=== PATIENT | male | born 1960 | race Caucasian/White ===

== ENCOUNTER 2017-12-05 16:13 | Emergency (ER) | payer OTHER ==
[2017-12-05 17:15] LABS: ABSOLUTE BASOPHILS # (AUTO) 0.1 10^3/uL (0.0-0.2); ABSOLUTE EOSINOPHILS # (AUTO) 0.2 10^3/uL (0.0-0.6); ABSOLUTE MONOCYTES (AUTO) 0.6 10^3/uL (0.1-1.4); ABSOLUTE NEUT (AUTO) 5.4 10^3/uL (1.7-8.2); EOSINOPHILS % (AUTO) 2.6 % (0-6); HEMATOCRIT 46.2 % (37.9-51.0); HEMOGLOBIN 16.5 g/dL (13.5-17.0); LYMPHOCYTES % (AUTO) 23.7 % (13-45); MEAN CORPUSCULAR HEMOGLOBIN 29.8 pg (27.0-33.4); MEAN CORPUSCULAR HGB CONC 35.7 g/dL (32.0-36.0); MEAN CORPUSCULAR VOLUME 84 fl (80-97); MONOCYTES % (AUTO) 7.6 % (3-13); PLATELET COUNT 188 10^3/uL (150-450); RED BLOOD COUNT 5.53 10^6/uL (4.35-5.55); RED CELL DISTRIBUTION WIDTH 13.8 % (11.5-14.0); SEGMENTED NEUTROPHILS % (AUTO) 65.1 % (42-78); TOTAL CELLS COUNTED % (AUTO) 100 %; WHITE BLOOD COUNT 8.3 10^3/uL (4.0-10.5)
[2017-12-05 17:17] LABS: INTERNATIONAL RATION (INR) 0.96; PROTHROMBIN TIME 13.2 SEC (11.4-15.4)
--- NOTE | 2017-12-05 17:17 | RADIOLOGY REPORT (SQ) ---
EXAM DESCRIPTION: CHEST SINGLE VIEW COMPLETED DATE/TIME: 12/05/2017 4:55 pm REASON FOR STUDY: stroke s/s COMPARISON: None. EXAM PARAMETERS: NUMBER OF VIEWS: One view. TECHNIQUE: Single frontal radiographic view of the chest acquired. RADIATION DOSE: NA LIMITATIONS: None. FINDINGS: LUNGS AND PLEURA: No opacities, masses or pneumothorax. No pleural effusion. MEDIASTINUM AND HILAR STRUCTURES: No masses. Contour normal. HEART AND VASCULAR STRUCTURES: Heart normal in size. Normal vasculature. BONES: No acute findings. HARDWARE: None in the chest. OTHER: No other significant finding. IMPRESSION: NO ACUTE RADIOGRAPHIC FINDING IN THE CHEST. TECHNICAL DOCUMENTATION: JOB ID: [id number] [employer]- All Rights Reserved Reading location - IP/workstation name: [email or web address]
[2017-12-05 17:18] LABS: PARTIAL THROMBOPLASTIN TIME 29.5 SEC (23.5-35.8)
--- NOTE | 2017-12-05 17:18 | RADIOLOGY REPORT (SQ) ---
EXAM DESCRIPTION: CT HEAD WITHOUT COMPLETED DATE/TIME: 12/05/2017 4:50 pm REASON FOR STUDY: stroke s/s COMPARISON: None. TECHNIQUE: Axial images acquired through the brain without intravenous contrast. Images reviewed wi th bone, brain and subdural windows. Additional sagittal and coronal reconstructions were generated. Images stored on PACS. All CT scanners at this facility use dose modulation, iterative reconstruction, and/or weight based d osing when appropriate to reduce radiation dose to as low as reasonably achievable (ALARA). [facility]: Dose Right [facility]: CareDose [facility]: Dose Right [facility]: Teradose 4D [facility]: [employer] RADIATION DOSE: CT Rad equipment meets quality standard of care and radiation dose reduction techniq ues were employed. CTDIvol: 53.2 mGy. DLP: 1097 mGy-cm. mGy. LIMITATIONS: None. FINDINGS: VENTRICLES: Normal size and contour. CEREBRUM: No masses. No hemorrhage. No midline shift. There is a vague area of low density in the right basal ganglia/ internal capsule. No mass effect or hemorrhage. CEREBELLUM: No masses. No hemorrhage. No alteration of density. No evidence for acute infarction. EXTRAAXIAL SPACES: No fluid collections. No masses. ORBITS AND GLOBE: No intra- or extraconal masses. Normal contour of globe without masses. CALVARIUM: No fracture. PARANASAL SINUSES: Mild chronic sinus disease. SOFT TISSUES: No mass or hematoma. OTHER: No other significant finding. IMPRESSION: Possible developing infarct in the right white matter without mass effect. EVIDENCE OF ACUTE STROKE: NO. COMMENT: Quality ID # [id number]: Final reports with documentation of one or more dose reduction techniques (e.g., Automated exposure control, adjustment of the mA and/or kV according to patient size, use of iterative reconstruction technique) TECHNICAL DOCUMENTATION: JOB ID: [id number] [employer]- All Rights Reserved Reading location - IP/workstation name: [email or web address]
[2017-12-05 17:36] LABS: ALANINE AMINOTRANSFERASE 16 U/L (21-72); ALBUMIN 4.3 g/dL (3.5-5.0); ALKALINE PHOSPHATASE 32 U/L (38-126); ANION GAP 10 (5-19); ASPARTATE AMINO TRANSFERASE 16 U/L (17-59); BILIRUBIN,DIRECT 0.2 mg/dL (0.0-0.4); BILIRUBIN,TOTAL 0.8 mg/dL (0.2-1.3); BLOOD UREA NITROGEN 8 mg/dL (7-20); CALCIUM 9.2 mg/dL (8.4-10.2); CARBON DIOXIDE 28 mmol/L (22-30); CHLORIDE 103 mmol/L (98-107); CREATINE KINASE 45 U/L (55-170); GLUCOSE 90 mg/dL (75-110); POTASSIUM 3.7 mmol/L (3.6-5.0); TOTAL PROTEIN 7.4 g/dL (6.3-8.2)
[2017-12-05] MEDS ORDERED: ASPIRIN 81 MG TABLET, CHEWABLE PO ONE (17:38)
[2017-12-05 17:47] LABS: CREATINE KINASE MB 0.94 ng/mL (<4.55)
[2017-12-05 17:52] LABS: TROPONIN I < 0.012 ng/mL
--- NOTE | 2017-12-05 17:55 | ER Document Report ---
ED General - General Chief Complaint: S/S of Possible Stroke Stated Complaint: LEFT SIDE NUMBNESS Time Seen by Provider: 12/05/17 17:00 Mode of Arrival: Ambulatory Information source: Patient Notes: 57-year-old male with untreated hypertension, hyperlipidemia presents via private vehicle with concern for stroke-like symptoms that started 1 day prior to arrival. Patient states that yesterday he developed left sided facial, arm and leg numbness. He states that it progressively worsened to the point that he was dragging his leg to walk. Son who is at the bedside states that he performed a limited stroke exam and at that time patient had no facial droop, slurred speech or ataxia. Patient states that the numbness and weakness improved throughout the day but then he experienced some blurred vision. Patient states that symptoms subsided by the time he went to bed but when he awoke this morning he again felt left-sided facial numbness. Patient denies prior similar symptoms, headache, tobacco use.. TRAVEL OUTSIDE OF THE [place] IN LAST 30 DAYS: No - HPI Onset: Yesterday Onset/Duration: Gradual, Persistent, Worse Quality of pain: No pain Associated symptoms: Weakness. denies: Fever, Headache, Nausea, Vomiting Exacerbated by: Denies Relieved by: Denies Similar symptoms previously: No Recently seen / treated by doctor: No - Related Data Allergies/Adverse Reactions: No Known Allergies Allergy (Verified 12/05/17 16:14) Past Medical History - General Information source: Patient, Relative, [facility] Records - Social History Smoking Status: Never Smoker Frequency of alcohol use: None Drug Abuse: None Lives with: Family Family History: Reviewed & Not Pertinent Patient has suicidal ideation: No Patient has homicidal ideation: No - Past Medical History Cardiac Medical History: Reports: Hx Hypercholesterolemia, Hx Hypertension Renal/ Medical History: Denies: Hx Peritoneal Dialysis Review of Systems - Review of Systems Constitutional: Weakness. denies: Recent illness EENT: denies: Difficulty swallowing Cardiovascular: denies: Chest pain Respiratory: denies: Short of breath Gastrointestinal: denies: Abdominal pain, Nausea, Vomiting Genitourinary: denies: Flank pain Musculoskeletal: No symptoms reported. denies: Back pain Skin: denies: Rash Neurological/Psychological: Weakness, Gait changes, Loss of power, Numbness. denies: Confusion, Headaches -: Yes All other systems reviewed and negative Physical Exam - Vital signs Vitals: Temp Pulse Resp BP Pulse Ox 98.8 F 69 18 166/111 H 98 12/05/17 16:21 12/05/17 16:21 12/05/17 16:21 12/05/17 16:21 12/05/17 16:21 - Notes Notes: PHYSICAL EXAMINATION: GENERAL: Well-appearing, well-nourished and in no acute distress. HEAD: Atraumatic, normocephalic. EYES: Pupils equal round and reactive to light, extraocular movements intact, sclera anicteric, conjunctiva are normal. ENT: Nares patent, oropharynx clear without exudates. Moist mucous membranes. NECK: Normal range of motion, supple without lymphadenopathy LUNGS: Breath sounds clear to auscultation bilaterally and equal. No wheezes rales or rhonchi. HEART: Regular rate and rhythm without murmurs ABDOMEN: Soft, nontender, nondistended abdomen. No guarding, no rebound. No masses appreciated. Musculoskeletal: Normal range of motion, no pitting or edema. No cyanosis. NEUROLOGICAL: Cranial nerves grossly intact. Normal speech, abnormal gait gait. Altered sensation on the left side of his face. NIH-2 for left upper extremity ataxia, decreased sensation. PSYCH: Normal mood, normal affect. SKIN: Warm, Dry, normal turgor, no rashes or lesions noted. Course - Re-evaluation Re-evalutation: Laboratory 12/05/17 12/05/17 12/05/17 17:00 17:00 17:00 WBC 8.3 RBC 5.53 Hgb 16.5 Hct 46.2 MCV 84 MCH 29.8 MCHC 35.7 RDW 13.8 Plt Count 188 Seg Neutrophils % 65.1 Lymphocytes % 23.7 Monocytes % 7.6 Eosinophils % 2.6 Basophils % 1.0 Absolute Neutrophils 5.4 Absolute Lymphocytes 2.0 Absolute Monocytes 0.6 Absolute Eosinophils 0.2 Absolute Basophils 0.1 PT 13.2 INR 0.96 APTT 29.5 Sodium 141.0 Potassium 3.7 Chloride 103 Carbon Dioxide 28 Anion Gap 10 BUN 8 Creatinine 0.81 Est GFR ( Amer) > 60 Est GFR (Non-Af Amer) > 60 Glucose 90 POC Glucose Calcium 9.2 Total Bilirubin 0.8 Direct Bilirubin 0.2 Neonat Total Bilirubin Not Reportable Neonat Direct Bilirubin Not Reportable Neonat Indirect Bili Not Reportable AST 16 L ALT 16 L Alkaline Phosphatase 32 L Creatine Kinase 45 L CK-MB (CK-2) Troponin I Total Protein 7.4 Albumin 4.3 12/05/17 12/05/17 17:00 17:36 WBC RBC Hgb Hct MCV MCH MCHC RDW Plt Count Seg Neutrophils % Lymphocytes % Monocytes % Eosinophils % Basophils % Absolute Neutrophils Absolute Lymphocytes Absolute Monocytes Absolute Eosinophils Absolute Basophils PT INR APTT Sodium Potassium Chloride Carbon Dioxide Anion Gap BUN Creatinine Est GFR ( Amer) Est GFR (Non-Af Amer) Glucose POC Glucose 96 Calcium Total Bilirubin Direct Bilirubin Neonat Total Bilirubin Neonat Direct Bilirubin Neonat Indirect Bili AST ALT Alkaline Phosphatase Creatine Kinase CK-MB (CK-2) 0.94 Troponin I < 0.012 Total Protein Albumin Chest X-Ray 12/05/17 16:41 IMPRESSION: NO ACUTE RADIOGRAPHIC FINDING IN THE CHEST. Head CT 12/05/17 16:41 IMPRESSION: Possible developing infarct in the right white matter without mass effect. EVIDENCE OF ACUTE STROKE: NO. Head CTA 12/05/17 17:27 IMPRESSION: 1. The the [place] is intact. 2. The basilar artery is patent but quite thin. 3. Sinus disease as described. Neck CTA 12/05/17 17:27 IMPRESSION: NORMAL CTA OF THE EXTRA-CRANIAL CAROTID AND VERTEBRAL ARTERIES. 12/05/17 20:02 57-year-old male with untreated hypertension, hyperlipidemia presents via private vehicle with concern for strokelike symptoms. Patient states that yesterday he developed left sided facial, arm and leg numbness. He states that it progressively worsened to the point that he was dragging his leg to walk. Son who is at the bedside states that he performed a limited stroke exam and at that time patient had no facial droop, slurred speech or ataxia. Patient states that the numbness and weakness improved throughout the day but then he had some blurred vision. Patient states that symptoms subsided by the time he went to bed but when he awoke this morning he again felt left-sided facial numbness. Patient denies prior similar symptoms, headache, tobacco use. Vital signs reviewed upon arrival. Patient is afebrile, hypertensive but not hypoxic. He is alert and oriented x4. NIH was performed immediately upon arrival and scored 2 for mild ataxia and decreased sensation. CT of the head was obtained and concerning for a possible developing infarct in the right white matter. CTA of the head and neck were obtained and showed no large vessel occlusion. Patient was administered aspirin. I did speak to [facility] who will accept the patient under Dr. Tommy Gudino. Patient reevaluated prior to transfer. He remained stable, alert, awake and safe for transfer. 12/05/17 20:02 - Vital Signs Vital signs: Temp Pulse Resp BP Pulse Ox 97.4 F 58 L 15 135/79 H 96 12/05/17 21:15 12/05/17 23:10 12/06/17 00:01 12/06/17 00:01 12/06/17 00:01 - Laboratory Result Diagrams: 12/05/17 17:00 12/05/17 17:00 Laboratory results interpreted by me: 12/05/17 17:00 AST 16 L ALT 16 L Alkaline Phosphatase 32 L Creatine Kinase 45 L - Diagnostic Test Radiology reviewed: Image reviewed, Reports reviewed - EKG Interpretation by Me EKG shows normal: Sinus rhythm Rate: Normal Rhythm: NSR When compared to previous EKG there are: Previous EKG unavailable Discharge - Discharge Clinical Impression: Left-sided weakness HTN (hypertension) Qualifiers: Hypertension type: unspecified Qualified Code(s): I10 - Essential (primary) hypertension Stroke Qualifiers: CVA mechanism: unspecified Qualified Code(s): I63.9 - Cerebral infarction, unspecified Condition: Good Disposition: [facility] ED NIH Stroke Scale - NIH Stroke Scale *: 1. NIH scale should be completed with appropriate accompanying assessment tools. *: 2. The NIH should reflect what the patient is capable of doing and should not be coached by the clinician. 1a. Level of Consciousness: 0=Alert;keenly responsive -: 1=Drowsy -: 2=Obtunded -: 3=Coma/unresponsive or reflex to noxious stimuli. 1a. Responses: 0 1b. Orientation Questions: a. What month is it? -: b. How old are you? -: 0=Answers both questions correctly. -: 1=Answers one question correctly or patient is intubated or has orotracheal trauma. -: 2=Answers neither question correctly. 1b. Responses: 0 1c. Response to commands: a. Open and close eyes? -: b. Peanut Grader and release hand? -: Credit is given despite weakness. Demonstration of task is permitted. Substitute command if hands cannot be used. -: 0=Performs both tasks correctly -: 1=Performs one task correctly -: 2=Performs neither task correctly 1c. Responses: 0 2. Gaze: Establish eye contact and instruct patient to "Follow my finger" -: 0=Normal -: 1=Partial gaze palsy. Gaze is abnormal in one or both eyes, but where forced deviation or total gaze paresis is not present. -: 2=Forced deviation or total gaze paresis. 2. Responses: 0 3. Visual Jhaveri: Sees fingers in all four quadrants. -: 0=No visual loss. -: 1=Partial hemianopsia. -: 2=Complete hemianopsia. -: 3=Bilateral hemianopsia (including Cortical blindness) 3. Responses: 0 4. Facial Movement: Instruct patient to: -: a. Show me your teeth -: b. Raise your eyebrows -: c. Close your eyes -: d. Smile -: 0=Normal symmetrical movement -: 1=Minor paralysis (flattened nasolabial fold, asymmetry on smiling). -: 2=Partial paralysis (total or near total paralysis of lower face). -: 3=Complete paralysis of upper and lower face 4. Responses: 0 5. Motor functions (left arm): Alternate sides and extend each arm with palms down (90 degrees if sitting or 45 degrees for supine). -: 0=No drift;limb holds for full 10 seconds. -: 1=Drift; limb holds but drifts down before full 10 seconds, but does not hit bed. -: 2=Some effort against gravity; limb cannot get to or maintain position. -: 3=No effort against gravity; limb falls. -: 4=No movement. -: UN=Amputation, joint fusion, explain in comments. 5. Responses (left arm): 0 5. Motor Functions (right arm): Alternate sides and extend each arm with palms down (90 degrees if sitting or 45 degrees for supine). -: 0=No drift;limb holds for full 10 seconds. -: 1=Drift; limb holds but drifts down before full 10 seconds, but does not hit bed. -: 2=Some effort against gravity; limb cannot get to or maintain position. -: 3=No effort against gravity; limb falls. -: 4=No movement. -: UN=Amputation, joint fusion, explain in comments. 5. Responses (right arm): 0 6. Motor Functions (left leg): With patient lying supine, alternate sides and extend each leg (30 degrees always while supine). -: 0=No drift, leg holds position for full 5 seconds -: 1=Drift; leg falls before full 5 seconds but does not hit bed. -: 2=Some effort against gravity, leg falls to bed but some effort against gravity. -: 3=No effort against gravity, leg falls to bed immediately. -: 4=No movement. -: UN=Amputation, joint fusion; explain in comments. 6. Responses (left leg): 0 6. Motor Functions (right leg): With patient lying supine, alternate sides and extend each leg (30 degrees always while supine). -: 0=No drift, leg holds position for full 5 seconds -: 1=Drift; leg falls before full 5 seconds but does not hit bed. -: 2=Some effort against gravity, leg falls to bed but some effort against gravity. -: 3=No effort against gravity, leg falls to bed immediately. -: 4=No movement. -: UN=Amputation, joint fusion; explain in comments. 6. Responses (right leg): 0 7. Limb Ataxia: With eyes open instruct patient to: -: a. "Touch your finger to your nose". -: b. "Touch your heel to your murphy" -: 0=Absent -: 1=Present in one limb. -: 2=Present in two limbs. -: UN=Amputation or joint fusion; explain in comments. 7. Responses: 1 7. If ataxia present choose as appropriate: Left arm 8. Sensory: Test sensation using pinprick or noxious stimuli. Test as many body parts as possible. -: 0=Normal;no sensory loss -: 1=Mile to moderate sensory loss (patient feels pin prick but is less sharp on affected side). -: 2=Severe or total sensory loss. 8. Responses: 1 9. Best Language: Instruct patient to: -: a. "Describe what you see in this picture." -: b. "Name the items in this picture." -: c. "Read these sentences." -: 0=No aphasia, normal -: 1=Mild to moderate aphasia. -: 2=Severe aphasia -: 3=Mute, global aphasia, no usable speech or auditory comprehension. 9. Responses: 0 10. Articulation, Dysarthia: Instruct patient to: -: "Read these words" or "Repeat these words" -: 0=Normal -: 1=Mild to moderate; patient may slur some words but can be understood without difficulty. -: 2=Severe; patients speech so slurred as to be unintelligible in the absence of dysphasia. -: UN=Intubated or other physical barrier, explain in comments. 10. Responses: 0 11. Extinction or inattention: 0=No abnormality -: 1= Visual, tactile, auditory, spatial, or personal inattention or extinction to bilateral simulation in one or the sensory modalities. -: 2=Profound mamta-inattention or mamta-inattention to more than one modality; does not recognize own hand. Total Score: 2
--- NOTE | 2017-12-05 18:01 | RADIOLOGY REPORT (SQ) ---
EXAM DESCRIPTION: CTA NECK COMPLETED DATE/TIME: 12/05/2017 5:48 pm REASON FOR STUDY: stroke like sx's COMPARISON: None. TECHNIQUE: Axial dynamic scanning technique with dynamic contrast enhancement through the extra-traveling crane operator nial carotid and vertebral arteries. Multiplanar reconstruction. 3-D MIPS and Volume-rendered imag es acquired at the workstation and saved to PACS. Images are reviewed in soft tissue, bone, lung w indows. All CT scanners at this facility use dose modulation, iterative reconstruction, and/or weight based d osing when appropriate to reduce radiation dose to as low as reasonably achievable (ALARA). [facility]: Dose Right [facility]: CareDose [facility]: Dose Right [facility]: Teradose 4D [facility]: [employer] CONTRAST TYPE AND DOSE: 70 mL Omnipaque 350- low osmolar. RENAL FUNCTION: Waived by the emergency room physician LIMITATIONS: None. FINDINGS: AORTIC ARCH: Normal three-vessel origin. Bilateral subclavian arteries are patent. No d issection. RIGHT CAROTIDS: Patent common, internal and external carotid arteries without suggestion of significa nt stenosis or irregular plaque. No dissection. RIGHT VERTEBRAL: Patent. No dissection. LEFT CAROTIDS: Patent common, internal and external carotid arteries without suggestion of significan t stenosis or irregular plaque. No dissection. LEFT VERTEBRAL: Patent. No dissection. OTHER: No other significant finding. OTHER: 3-D reconstructions confirm findings. IMPRESSION: NORMAL CTA OF THE EXTRA-CRANIAL CAROTID AND VERTEBRAL ARTERIES. COMMENT: Quality ID #[id number]: Measurements of distal internal carotid diameter were used as the denomina tor for stenosis measurement. TECHNICAL DOCUMENTATION: JOB ID: [id number] Quality ID # [id number]: Final reports with documentation of one or more dose reduction techniques (e.g., Au tomated exposure control, adjustment of the mA and/or kV according to patient size, use of iterative reconstruction technique) 2010 [employer]- All Rights Reserved Reading location - IP/workstation name: [email or web address]
--- NOTE | 2017-12-05 18:06 | RADIOLOGY REPORT (SQ) ---
EXAM DESCRIPTION: CTA HEAD COMPLETED DATE/TIME: 12/05/2017 5:48 pm REASON FOR STUDY: stroke like sx's COMPARISON: None. TECHNIQUE: Post IV contrast scanning, thin section axial imaging through the brain to evaluate the a rterial structures. Source and MIP images are saved and reviewed on PACS. Advanced 3D imaging as volume-rendering, MIPs, SSD performed? No All CT scanners at this facility use dose modulation, iterative reconstruction, and/or weight based d osing when appropriate to reduce radiation dose to as low as reasonably achievable (ALARA). [facility]: Dose Right [facility]: CareDose [facility]: Dose Right [facility]: Teradose 4D [facility]: Dexcom CONTRAST TYPE AND DOSE: contrast/concentration: Isovue 350.00 mg/ml; Total Contrast Delivered: 70.0 ml; Total Saline Delivered: 75.0 ml RENAL FUNCTION: Waived by the emergency room physician. LIMITATIONS: None. FINDINGS: [place]: The anterior, middle, posterior cerebral arteries are all patent. No ev idence of aneurysm or focal stenosis. POSTERIOR CIRCULATION: Distal vertebral arteries and basilar artery are patent. Basilar artery is qu ite thin. BRAIN: No gross enhancing lesions as visualized. The superior cerebral hemispheres are not included in the field of view. BONES: Intact as visualized. SINUSES: Small mucous retention cyst in the right maxillary sinus. Opacification of some of the ethm oid air cells. Mucoperiosteal thickening in the frontal sinuses. OTHER: No other significant finding. IMPRESSION: 1. The [place] is intact. 2. The basilar artery is patent but quite thin. 3. Sinus disease as described. TECHNICAL DOCUMENTATION: JOB ID: [id number] Quality ID # [id number]: Final reports with documentation of one or more dose reduction techniques (e.g., Au tomated exposure control, adjustment of the mA and/or kV according to patient size, use of iterative reconstruction technique) 2010 [employer]- All Rights Reserved Reading location - IP/workstation name: [email or web address]
--- NOTE | 2017-12-05 18:28 | EKG REPORT ---
SEVERITY:- NORMAL ECG - SINUS RHYTHM : Confirmed by: Paul Taylor MD 05-Dec-2017 18:27:23
[2017-12-06 01:11] VITALS: BP 158/99
--- NOTE | 2017-12-06 01:11 | ER Document Report ---
Doctor's Note Notes: 12/06/17 01:10 Patient resting comfortably on stretcher, no complaints at present time, denies any specific needs prior to transfer, transfer crew is in the department to take patient to tertiary care center for further evaluation and treatment, patient remains stable for transfer
== END 2017-12-06 01:18 | disposition short-term general hospital (02) ==
LOC: ER 16:13
DX: I63.9 Cerebral infarction, unspecified (principal); R29.702 NIHSS score 2; R20.0 Anesthesia of skin; R53.83 Other fatigue; I10 Essential (primary) hypertension; E78.5 Hyperlipidemia, unspecified
CPT/HCPCS: 36415; 70450; 70496; 70498; 71045; 80053; 82550; 82553; 82962; 84484; 85025; 85610; 85730; 93005; 93010; 99285

== ENCOUNTER 2018-02-16 18:09 | Emergency (ER) | payer OTHER ==
--- NOTE | 2018-02-16 18:25 | ER Document Report ---
Addendum entered and electronically signed by SHANNON LUNSFORD LCSWA 02/17/18 17:31: Discharge - Discharge Clinical Impression: Suicidal ideation Depression Qualifiers: Depression Type: unspecified Qualified Code(s): F32.9 - Major depressive disorder, single episode, unspecified Condition: Stable Disposition: HOME, SELF-CARE Additional Instructions: You have been evaluated both medical and behavioral health teams and been deemed appropriate for discharge. You have provided a prescription for Zyprexa 5 mg daily; please take as directed. Please follow-up with [facility] upon discharge for continued outpatient mental health services. You have also been provided a resource list area financial and food assistance. DEPRESSION: Your evaluation reveals that you have mental depression. While symptoms may be vague, they often include disturbance of sleep, fatigue, loss of appetite, and general loss of interest in life. While depression may be a side effect of drugs, or a reaction to a major change in your life, many cases have no known cause. If depression is acute, and related to a major loss in your life, you can expect it to clear completely with time. If you have been depressed a long time, are prone to repeated bouts of depression or low mood, or have been thinking of suicide, get help. Depression can be treated with anti-depressant medication and counselling. Long-term depression will often take a few weeks to clear, even with appropriate medication. Follow-up care is important. SUICIDAL IDEATION: Suicidal ideation is a common medical term for thoughts about suicide, which may be as detailed as a formulated plan, without the suicidal act itself. Although most people who undergo suicidal ideation do not commit suicide, some go on to make suicide attempts. The range of suicidal ideation varies greatly from fleeting to detailed planning, role playing, and unsuccessful attempts. While thoughts about suicide are common, most people do not carry out serious actions to commit suicide. Based upon your evaluation and discussion with you, we do not believe you are currently at risk to act upon your thoughts of suicide. You have agreed to return to the Emergency Department, at any time, if you feel inclined to act upon your suicidal thoughts. FOLLOW-UP CARE: If you experience worsening or a significant change in your symptoms, notify the physician immediately or return to the Emergency Department at any time for re- evaluation. Referrals: [facility] [Outside] - Follow up as needed [facility] [Outside] - Follow up in 3-5 days Original Note: ED General - General Chief Complaint: Suicidal Ideation Stated Complaint: PSYCH EVAL Time Seen by Provider: 02/16/18 18:24 Notes: Patient is a 57-year-old male with depression that [facility] for chief complaint of suicidal thoughts. Patient states that yesterday today's had ongoing thoughts of suicide, and had a plan to put a bag over his head and inflated with helium until he . He has had thoughts like this in the past, has had severe depression in the past, he has been hospitalized twice, but he has not seen a physician in over a year, he did have a counselor in [place] but moved down here about a year ago. He states he does not have insurance or any money, is not currently on any medications. He denies having access to firearms and when asked this he said "its unfortunate that I do not because it would have been ended by now." He denies any hallucinations, or homicidal ideations, his main issue is his suicidal ideations and severe depression. He states that he is jobless, had a move here with his son, has no money, was unable to buy his kids gifts for Novavax, he is as well and he feels like a failure. Past Medical History: Major depressive disorder Past Surgical History: Lipoma removal Social History: Admits to rare alcohol use, denies tobacco or illicit drug use. Family History: Reviewed and noncontributory for presenting illness Allergies: Reviewed, see documented allergy list. REVIEW OF SYSTEMS: Other than noted above, the 12 point review of systems was reviewed with the patient and were negative, all pertinent findings are included in the HPI. PHYSICAL EXAMINATION: Vital signs reviewed, nursing noted reviewed. GENERAL: Well-appearing, well-nourished and in no acute distress. HEAD: Atraumatic, normocephalic. EYES: Eyes appear normal, extraocular movements intact, sclera anicteric, conjunctiva are normal. ENT: nares patent, oropharynx clear without exudates. Moist mucous membranes. NECK: Normal range of motion, supple without lymphadenopathy LUNGS: Breath sounds clear to auscultation bilaterally and equal. No wheezes rales or rhonchi. HEART: Regular rate and rhythm without murmurs ABDOMEN: Soft, nontender, normoactive bowel sounds. No rebound, guarding, or rigidity. No masses appreciated. EXTREMITIES: Nontender, good range of motion, no pitting or edema. NEUROLOGICAL: No focal neurological deficits. Moves all extremities spontaneously Motor and sensory grossly intact on exam. PSYCH: Tearful on exam, appears distraught, dysphoric mood SKIN: Warm, Dry, normal turgor, no rashes or lesions noted on exposed skin TRAVEL OUTSIDE OF THE [place] IN LAST 30 DAYS: No - Related Data Allergies/Adverse Reactions: No Known Allergies Allergy (Verified 12/05/17 16:14) Past Medical History - Social History Smoking Status: Never Smoker Family History: Reviewed & Not Pertinent - Past Medical History Cardiac Medical History: Reports: Hx Hypercholesterolemia, Hx Hypertension Renal/ Medical History: Denies: Hx Peritoneal Dialysis Physical Exam - Vital signs Vitals: Temp Pulse Resp BP Pulse Ox 98.5 F 80 16 145/99 H 97 02/16/18 18:14 02/16/18 18:14 02/16/18 18:14 02/16/18 18:14 02/16/18 18:14 Course - Re-evaluation Re-evalutation: Patient seen and examined, vital signs reviewed. Medical screening testing was ordered including bloodwork, EKG, and toxicology. Results of testing were reviewed. Testing demonstrated hypokalemia of 2.9, patient given 60 mEq of oral potassium replacement, will repeat this testing, if in normal range, patient will be cleared clinically from a medical standpoint to be further evaluated from a psychiatric standpoint. Patient has been stable from a hemodynamic standpoint. Patient updated on plan of care. Repeat potassium came back in safe range of 3.8, patient now clear from mental standpoint to be evaluated for mental health issues. Laboratory 02/16/18 02/16/18 02/16/18 18:46 18:46 18:46 WBC 9.0 RBC 5.33 Hgb 16.0 Hct 44.6 MCV 84 MCH 30.0 MCHC 35.8 RDW 14.0 Plt Count 217 Seg Neutrophils % 69.0 Lymphocytes % 22.3 Monocytes % 6.5 Eosinophils % 1.5 Basophils % 0.7 Absolute Neutrophils 6.2 Absolute Lymphocytes 2.0 Absolute Monocytes 0.6 Absolute Eosinophils 0.1 Absolute Basophils 0.1 Sodium 141.2 Potassium 2.9 L* Chloride 102 Carbon Dioxide 31 H Anion Gap 8 BUN 7 Creatinine 0.81 Est GFR ( Amer) > 60 Est GFR (Non-Af Amer) > 60 Glucose 92 Calcium 9.1 Total Bilirubin 0.8 Direct Bilirubin 0.2 Neonat Total Bilirubin Not Reportable Neonat Direct Bilirubin Not Reportable Neonat Indirect Bili Not Reportable AST 11 L ALT 8 L Alkaline Phosphatase 38 Total Protein 6.6 Albumin 3.9 Urine Color YELLOW Urine Appearance CLEAR Urine pH 6.0 Ur Specific [place] 1.013 Urine Protein NEGATIVE Urine Glucose (UA) NEGATIVE Urine Ketones NEGATIVE Urine Blood NEGATIVE Urine Nitrite NEGATIVE Urine Bilirubin NEGATIVE Urine Urobilinogen NEGATIVE Ur Leukocyte Esterase NEGATIVE Urine WBC (Auto) 1 Urine RBC (Auto) 0 Urine Mucus (Auto) MANY Urine Ascorbic Acid NEGATIVE Salicylates < 1.0 L Urine Opiates Screen Urine Methadone Screen Acetaminophen < 10 L Ur Barbiturates Screen Ur Phencyclidine Scrn Ur Amphetamines Screen U Benzodiazepines Scrn Urine Cocaine Screen U Marijuana (THC) Screen Serum Alcohol < 10 02/16/18 18:46 WBC RBC Hgb Hct MCV MCH MCHC RDW Plt Count Seg Neutrophils % Lymphocytes % Monocytes % Eosinophils % Basophils % Absolute Neutrophils Absolute Lymphocytes Absolute Monocytes Absolute Eosinophils Absolute Basophils Sodium Potassium Chloride Carbon Dioxide Anion Gap BUN Creatinine Est GFR ( Amer) Est GFR (Non-Af Amer) Glucose Calcium Total Bilirubin Direct Bilirubin Neonat Total Bilirubin Neonat Direct Bilirubin Neonat Indirect Bili AST ALT Alkaline Phosphatase Total Protein Albumin Urine Color Urine Appearance Urine pH Ur Specific [place] Urine Protein Urine Glucose (UA) Urine Ketones Urine Blood Urine Nitrite Urine Bilirubin Urine Urobilinogen Ur Leukocyte Esterase Urine WBC (Auto) Urine RBC (Auto) Urine Mucus (Auto) Urine Ascorbic Acid Salicylates Urine Opiates Screen NEGATIVE Urine Methadone Screen NEGATIVE Acetaminophen Ur Barbiturates Screen NEGATIVE Ur Phencyclidine Scrn NEGATIVE Ur Amphetamines Screen NEGATIVE U Benzodiazepines Scrn NEGATIVE Urine Cocaine Screen NEGATIVE U Marijuana (THC) Screen NEGATIVE Serum Alcohol 02/17/18 08:43 - Vital Signs Vital signs: Temp Pulse Resp BP Pulse Ox 97.5 F 61 16 139/97 H 100 02/17/18 07:30 02/17/18 07:30 02/17/18 07:30 02/17/18 07:30 02/17/18 07:30 - Laboratory Result Diagrams: 02/16/18 18:46 02/17/18 00:24 Laboratory results interpreted by me: 02/16/18 02/17/18 18:46 00:24 Potassium 2.9 L* Carbon Dioxide 31 H 33 H AST 11 L ALT 8 L Salicylates < 1.0 L Acetaminophen < 10 L - EKG Interpretation by Me Additional EKG results interpreted by me: EKG demonstrates sinus rhythm with a ventricular rate of 60 bpm, normal axis, normal intervals, no evidence of acute ischemia on this EKG, this is compared with prior EKG from 12/05/2017, without significant change. Discharge - Discharge Clinical Impression: Suicidal ideation Condition: Stable Disposition: PSYCH HOSP/UNIT
[2018-02-16 19:17] LABS: ABSOLUTE BASOPHILS # (AUTO) 0.1 10^3/uL (0.0-0.2); ABSOLUTE EOSINOPHILS # (AUTO) 0.1 10^3/uL (0.0-0.6); ABSOLUTE MONOCYTES (AUTO) 0.6 10^3/uL (0.1-1.4); ABSOLUTE NEUT (AUTO) 6.2 10^3/uL (1.7-8.2); BASOPHILS % (AUTO) 0.7 % (0-2); EOSINOPHILS % (AUTO) 1.5 % (0-6); HEMATOCRIT 44.6 % (37.9-51.0); LYMPHOCYTES % (AUTO) 22.3 % (13-45); MEAN CORPUSCULAR HGB CONC 35.8 g/dL (32.0-36.0); MEAN CORPUSCULAR VOLUME 84 fl (80-97); MONOCYTES % (AUTO) 6.5 % (3-13); PLATELET COUNT 217 10^3/uL (150-450); RED BLOOD COUNT 5.33 10^6/uL (4.35-5.55); TOTAL CELLS COUNTED % (AUTO) 100 %
[2018-02-16 19:27] LABS: ALANINE AMINOTRANSFERASE 8 U/L (21-72); ALBUMIN 3.9 g/dL (3.5-5.0); ALKALINE PHOSPHATASE 38 U/L (38-126); ANION GAP 8 (5-19); ASPARTATE AMINO TRANSFERASE 11 U/L (17-59); BILIRUBIN,DIRECT 0.2 mg/dL (0.0-0.4); BILIRUBIN,TOTAL 0.8 mg/dL (0.2-1.3); BLOOD UREA NITROGEN 7 mg/dL (7-20); CALCIUM 9.1 mg/dL (8.4-10.2); CARBON DIOXIDE 31 mmol/L (22-30); CHLORIDE 102 mmol/L (98-107); GLUCOSE 92 mg/dL (75-110); SODIUM 141.2 mmol/L (137-145); TOTAL PROTEIN 6.6 g/dL (6.3-8.2); URINE AMPHETAMINES SCREEN NEGATIVE; URINE BARBITURATES SCREEN NEGATIVE; URINE BENZODIAZEPINES SCREEN NEGATIVE; URINE COCAINE SCREEN NEGATIVE; URINE MARIJUANA (THC) SCREEN NEGATIVE; URINE METHADONE SCREEN NEGATIVE; URINE PHENCYCLIDINE SCREEN NEGATIVE
[2018-02-16 19:31] LABS: APPEARANCE,URINE CLEAR; BILIRUBIN,URINE NEGATIVE (NEGATIVE); COLOR,URINE YELLOW; GLUCOSE, URINE NEGATIVE (NEGATIVE); KETONES,URINE NEGATIVE (NEGATIVE); LEUKOCYTE ESTERASE,URINE NEGATIVE (NEGATIVE); NITRITE,URINE NEGATIVE (NEGATIVE); PROTEIN,URINE NEGATIVE (NEGATIVE); URINE SPECIFIC GRAVITY 1.013; UROBILINOGEN,URINE NEGATIVE mg/dL (<2.0)
[2018-02-16 19:32] LABS: ACETAMINOPHEN < 10 ug/mL (10-30); ALCOHOL < 10 mg/dL (NONE DETECTED); SALICYLATE < 1.0 mg/dL (2.0-20.0)
[2018-02-16 19:33] LABS: POTASSIUM 2.9 mmol/L (3.6-5.0)
[2018-02-16] MEDS ORDERED: POTASSIUM CHLORIDE 10 MEQ CAPSULE.ER PO ONE (19:36)
--- NOTE | 2018-02-16 23:43 | EKG REPORT ---
SEVERITY:- NORMAL ECG - SINUS RHYTHM : Confirmed by: Olamide Vazquez 16-Feb-2018 23:42:20
[2018-02-17 00:59] LABS: BLOOD UREA NITROGEN 8 mg/dL (7-20); CALCIUM 8.9 mg/dL (8.4-10.2); GLUCOSE 107 mg/dL (75-110); POTASSIUM 3.8 mmol/L (3.6-5.0)
[2018-02-17 01:05] LABS: ANION GAP 5 (5-19); CARBON DIOXIDE 33 mmol/L (22-30); CHLORIDE 104 mmol/L (98-107); SODIUM 141.7 mmol/L (137-145)
[2018-02-17 07:36] VITALS: BP 139/97
--- NOTE | 2018-02-17 09:10 | ER Document Report ---
Doctor's Note Notes: 02/17/18 09:39 Patient seen and evaluated by myself. He is a 57-year-old male who presents emergency department with depression and suicidal ideations. Patient does have a plan. He states that he was going to put a bag over his head inflated with helium until he . Patient denies being on any current medications for depression. He has not seen a physician in over a year. He did have a counselor previously. No issues overnight per nursing. Patient's vital signs are stable. He was medically cleared. Patient has no complaints in the room. Behavioral health was consulted. They are working on placement. 02/17/18 18:10 Behavioral [facility] evaluated the patient. They now do not feel he needs to be admitted inpatient. Patient was feeling depressed because he has no money to buy food or pay his bills. [facility] contacted the son. He just returned for his deployment. He is agreeable to buying the patient food and cooking supplies. He removed the helium tank from the patient's house. [facility] was contacted to follow up on the patient as the patient's son is leaving tomorrow for a vacation. The plan of care was discussed with the patient. He is agreeable with discharge home. He has resources for possible job placement. The patient says he's feeling better about his situation. He still admits to feeling depressed but denies suicidal ideations or homicidal ideations. 02/17/18 18:17
[2018-02-17] MEDS ORDERED: OLANZAPINE 5 MG TABLET PO ONE (17:28)
== END 2018-02-17 18:39 | disposition home or self-care (01) ==
LOC: ER 18:09
DX: F32.9 Major depressive disorder, single episode, unspecified (principal); R45.851 Suicidal ideations; Z59.8 Other problems related to housing and economic circumstances
CPT/HCPCS: 36415; 80048; 80053; 80307; 81001; 85025; 93005; 93010; 99285

== ENCOUNTER 2018-02-17 21:21 | Emergency (ER) | payer OTHER ==
--- NOTE | 2018-02-18 03:25 | ER Document Report ---
Addendum entered and electronically signed by RICHELLE CHIU LPCA 02/18/18 12:25: Discharge - Discharge Clinical Impression: Suicidal ideation Depression Qualifiers: Depression Type: unspecified Qualified Code(s): F32.9 - Major depressive disorder, single episode, unspecified Condition: Stable Disposition: HOME, SELF-CARE Additional Instructions: You were evaluated and assessed at the [facility] Emergency Department by the medical and behavioral teams for depression and are now appropriate for discharge. While at the ED you received an initial medical screening, lab work, EKG, medications, direct staff observation clinical evaluation, multiple physician assessment, 1:1 counseling, and outpatient resources. Review of your chart reveals you were just discharged from the ED yesterday with an aftercare plan in place with your son, mobile crisis, and resources for each of the problem areas you identified as contributing to your depression. You verbalized to both the physician and the behavioral health clinician at time of discharge understanding of the plan, agreement with plan, and denied suicidal ideation, intent or plan. Additionally, at discharge, a warm handoff to [facility] took place and you denied suicidal ideation to the MCM worker at that time. However, within an hour you returned to the ED voicing suicidal ideation without intent or plan. As such, [facility] remains involved in your care and available to you for ongoing outpatient treatment and services. You received medications at your last visit and all resources remain the same which you acknowledged you still have. You are encouraged to follow up with your outpatient behavioral health provider, [facility], be compliant with prescribed medications, and follow through with prescribed tasks you have been assigned. DEPRESSION: Your evaluation reveals that you have depression. While symptoms may be vague, they often include disturbance of sleep, fatigue, loss of appetite, and general loss of interest in life. While depression may be a side effect of drugs, or a reaction to a major change in your life, many cases have no known cause. If depression is acute, and related to a major loss in your life, you can expect it to clear completely with time. If you have been depressed a long time, are prone to repeated bouts of depression or low mood, or have been thinking of suicide, get help. Depression can be treated with anti-depressant medication and counseling. Long-term depression will often take a few weeks to clear, even with appropriate medication. Follow-up care is important. FOLLOW-UP CARE: If you have been referred to a physician for follow-up care, call the physicians office for an appointment as you were instructed or within the next two days.~ If you experience worsening or a significant change in your symptoms, notify mobile crisis immediately or return to the Emergency Department at any time for re-evaluation. Referrals: [facility] [Provider Group] - Follow up as needed [facility] [Provider Group] - Follow up as needed [facility] [Provider Group] - Follow up as needed [facility] [Provider Group] - Follow up as needed Original Note: ED General - General Chief Complaint: Suicidal Ideation Stated Complaint: SUCIDAL THOUGHTS Time Seen by Provider: 02/17/18 22:14 Notes: Patient is a 57-year-old male just discharged from the emergency department after evaluation by the psychiatric services due to concerns of suicidal ideation depression who apparently was never discharged out of the lobby. Apparently the patient did not end of having a safe discharge plan, his son was going out of town and the patient continued to voice thoughts of suicide without anybody to watch over him. The patient currently states that he does continue to feel suicidal, depressed without focus or direction in life. He denies any acute medical complaints. Nothing is new or different from his previous presentation. TRAVEL OUTSIDE OF THE [place] IN LAST 30 DAYS: No - HPI Onset: Yesterday Onset/Duration: Gradual Quality of pain: No pain Severity: None Pain Level: Denies Associated symptoms: None Exacerbated by: Denies Relieved by: Denies Similar symptoms previously: Yes Recently seen / treated by doctor: Yes - Related Data Allergies/Adverse Reactions: No Known Allergies Allergy (Verified 12/05/17 16:14) Past Medical History - General Information source: Patient - Social History Smoking Status: Never Smoker Chew tobacco use (# tins/day): No Frequency of alcohol use: Rare Drug Abuse: None Lives with: Family Family History: Reviewed & Not Pertinent Patient has suicidal ideation: Yes Patient has homicidal ideation: No - Past Medical History Cardiac Medical History: Reports: Hx Hypercholesterolemia, Hx Hypertension Renal/ Medical History: Denies: Hx Peritoneal Dialysis Review of Systems - Review of Systems Notes: Constitutional: Negative for fever. HENT: Negative for sore throat. Eyes: Negative for visual changes. Cardiovascular: Negative for chest pain. Respiratory: Negative for shortness of breath. Gastrointestinal: Negative for abdominal pain, vomiting or diarrhea. Genitourinary: Negative for dysuria. Musculoskeletal: Negative for back pain. Skin: Negative for rash. Neurological: Negative for headaches, weakness or numbness. 10 point ROS negative except as marked above and in HPI. Physical Exam - Vital signs Vitals: Temp Pulse BP Pulse Ox 99.3 F 72 155/102 H 97 02/17/18 21:32 02/17/18 21:32 02/17/18 21:32 02/17/18 21:32 Interpretation: Hypertensive Notes: PHYSICAL EXAMINATION: GENERAL: Well-appearing, well-nourished and in no acute distress. HEAD: Atraumatic, normocephalic. EYES: Pupils equal round and reactive to light, extraocular movements intact, sclera anicteric, conjunctiva are normal. ENT: nares patent, oropharynx clear without exudates. Moist mucous membranes. NECK: Normal range of motion, supple without lymphadenopathy LUNGS: Breath sounds clear to auscultation bilaterally and equal. No wheezes rales or rhonchi. HEART: Regular rate and rhythm without murmurs ABDOMEN: Soft, nontender, normoactive bowel sounds. No guarding, no rebound. No masses appreciated. EXTREMITIES: Normal range of motion, no pitting or edema. No cyanosis. NEUROLOGICAL: No focal neurological deficits. Moves all extremities spontaneously and on command. PSYCH: Somewhat flat affect, poor eye contact. Expressing suicidal ideation. SKIN: Warm, Dry, normal turgor, no rashes or lesions noted. Course - Re-evaluation Re-evalutation: 02/18/18 03:23 Presentation of a well-appearing 57-year-old man with ongoing suicidal ideation. The patient returns to the emergency department after he never actually leaving the hospital due to concerns that he does not have a safe plan for discharge as his son is going out of town. Patient does continue to note that he feels suicidal but denies specific plan. Denies any acute medical concerns. Medical screening exam unremarkable. I have not repeated medical screening labs since they were performed within the last 24 hours. He is cleared for evaluation and disposition by behavioral health services in the morning. - Vital Signs Vital signs: Temp Pulse Resp BP Pulse Ox 99.3 F 72 155/102 H 97 02/17/18 21:32 02/17/18 21:32 02/17/18 21:32 02/17/18 21:32 Discharge - Discharge Clinical Impression: Suicidal ideation Depression Qualifiers: Depression Type: unspecified Qualified Code(s): F32.9 - Major depressive disorder, single episode, unspecified
--- NOTE | 2018-02-18 10:29 | ER Document Report ---
Doctor's Note Notes: 02/18/18 10:27 Patient seen and evaluated by myself. No issues overnight per nursing. Patient is a 57-year-old male who was just discharged yesterday after being cleared by behavioral health for his suicidal ideations. Patient wanted to kill himself by inhaling helium. Behavioral health contacted the son. The helium tank was removed from the home. The patient states that he is depressed because he has no money to afford groceries or medications. Behavioral health contacted the son. The son took him to the grocery store last night and start him up with food. The son attempted to get his prescriptions but as it was [place] the pharmacy closed early. Patient was not able to get his Zyprexa filled. Wh en the patient got home he began feeling suicidal again. Mobile crisis was contacted. They recommended he come to the emergency department for another evaluation. Behavioral health consulted. Awaiting their current recommendations. 02/18/18 12:33 Behavioral health was consulted. Patient admits to having thoughts of suicide yesterday after leaving the hospital. He denies any plans currently. Patient admits that he told mobile crisis he wanted to kill himself and said that he would use household items to do it in an attempt to get admitted inpatient. Patient's son did stock his house up with groceries and provided him money to get his medication. Mobile poultry husbandry worker, Fuentes, is going to take the patient from the emergency department to get his medication. The role of mobile crisis was discussed with the patient. Patient feels comfortable with discharge.
[2018-02-18 12:54] VITALS: BP 143/85
--- NOTE | 2018-02-18 12:57 | PSYCHOLOGICAL NOTE ---
Psych Note - Psych Note Date seen by psych provider: 02/18/18 - TG Time seen by psych provider: 10:30 Psych Note: Met with Patient following his return after yesterday's discharge. Patient reported he advised [facility] Fuentes Colon once he arrived at home that he was "suicida l with plans to hurt myself if I can find items in my house to do it." Patient reportedly did not advise Fuentes of his history in [place] nor of the aftercare plan put in place at discharge. Fuentes advised Patient he would return to [facility] and did so at which time when Patient was seen by the ED provider, he failed to advise the Provider of the aftercare plan developed for him or that he denied suicidal ideation upon discharge earlier in the evening. During evaluation patient presented as a victim and with a "poor me" type attitude that keeps him a "suicidal state of mind." Patient advised he always t hinks if suicide with no plan or intent. Conducted 1:1 counseling with Patient regarding choices of where he places his attention of his thoughts, moves forward in his life, and how he can choose to keep people close or push them away. Discussed with Patient that a hospital is not where he will move forward towards goals. Patient could not identify what a hospital could provide, how he wanted a hospital to help or what he needed. Patient was content with staying in the ED as long as he could. He was advised that would not occur as this was an acute medical setting and at tis time he did not meet criteria for inpatient care given his unwillingness for compliancy towards any type of treatment. At end of session, Patient was more open to perspective taking and indicated he wished to make different choices and did not have suicidal plans but continued to have suicidal thoughts, which he was advised that was not necessarily abnormal, but he was capable of changing those thoughts. Patient was alert and oriented to person, place, time, and circumstance. Mood was dysthymic and affect was mood congruent. He reported passive suicidal ideation but no intent or plan. No homicidal ideation, intent or plan. He denied auditory / visual hallucinations and delusions were absent. Thought processes were logical, linear, and rational. Conversational speech was within normal limits for rate, tone, and prosody. Eye contact was well maintained. Attention and concentration was within normal limits. Insight, judgment, and impulse are fair. Diagnoses: 1. 296.32 (F33.1) Impression / Plan: Patient is cleared from acute psychiatric services. Aftercare plan remains the same with Fuentes Colon from [facility] picking up Patient and taking him home, picking up his medications, and ensuring his outpatient mental health needs are met. Social needs are being addressed by [facility] and the Patient. Patient has mobile crisis number and is aware of his need to move forward with regard to making contact with social service agencies in order to best meet his needs.Consulted with Dr. Jimenez on the treatment and care of this Patient. ED Physician in agreement with recommendation and disposition.
== END 2018-02-18 12:53 | disposition home or self-care (01) ==
LOC: ER 21:21
DX: F32.9 Major depressive disorder, single episode, unspecified (principal); T43.596A Underdosing of other antipsychotics and neuroleptics, initial encounter; Z91.128 Patient's intentional underdosing of medication regimen for other reason; R45.851 Suicidal ideations; Z59.8 Other problems related to housing and economic circumstances; I10 Essential (primary) hypertension
CPT/HCPCS: 99285

== ENCOUNTER 2018-02-20 14:27 | Emergency (ER) | payer OTHER ==
--- NOTE | 2018-02-20 15:10 | ER Document Report ---
ED Medical Screen (RME) - General Chief Complaint: Psych Problem Stated Complaint: PSYCH EVAL Time Seen by Provider: 02/20/18 15:09 TRAVEL OUTSIDE OF THE [place] IN LAST 30 DAYS: No - Related Data Allergies/Adverse Reactions: No Known Allergies Allergy (Verified 02/20/18 14:33) Past Medical History - Social History Chew tobacco use (# tins/day): No Frequency of alcohol use: None Drug Abuse: None - Past Medical History Cardiac Medical History: Reports: Hx Hypercholesterolemia, Hx Hypertension Renal/ Medical History: Denies: Hx Peritoneal Dialysis Course - Re-evaluation Re-evalutation: 02/20/18 15:10 57-year-old man who presents under IVC for self-injurious intent. I have seen and performed a rapid medical screening examination on this patient, workup has been initiated however there will require further evaluation reassessment and disposition determination from a secondary provider.
[2018-02-20 15:25] LABS: ABSOLUTE BASOPHILS # (AUTO) 0.1 10^3/uL (0.0-0.2); ABSOLUTE EOSINOPHILS # (AUTO) 0.2 10^3/uL (0.0-0.6); ABSOLUTE MONOCYTES (AUTO) 0.5 10^3/uL (0.1-1.4); ABSOLUTE NEUT (AUTO) 6.2 10^3/uL (1.7-8.2); BASOPHILS % (AUTO) 0.9 % (0-2); EOSINOPHILS % (AUTO) 1.7 % (0-6); HEMATOCRIT 46.5 % (37.9-51.0); HEMOGLOBIN 16.5 g/dL (13.5-17.0); LYMPHOCYTES % (AUTO) 22.6 % (13-45); MEAN CORPUSCULAR HEMOGLOBIN 30.3 pg (27.0-33.4); MEAN CORPUSCULAR HGB CONC 35.5 g/dL (32.0-36.0); MEAN CORPUSCULAR VOLUME 85 fl (80-97); PLATELET COUNT 200 10^3/uL (150-450); RED BLOOD COUNT 5.44 10^6/uL (4.35-5.55); RED CELL DISTRIBUTION WIDTH 14.2 % (11.5-14.0); SEGMENTED NEUTROPHILS % (AUTO) 68.8 % (42-78); TOTAL CELLS COUNTED % (AUTO) 100 %
[2018-02-20 15:30] LABS: ALANINE AMINOTRANSFERASE 11 U/L (21-72); ALBUMIN 4.2 g/dL (3.5-5.0); ALKALINE PHOSPHATASE 38 U/L (38-126); ANION GAP 9 (5-19); ASPARTATE AMINO TRANSFERASE 13 U/L (17-59); BILIRUBIN,DIRECT 0.1 mg/dL (0.0-0.4); BILIRUBIN,TOTAL 0.6 mg/dL (0.2-1.3); BLOOD UREA NITROGEN 13 mg/dL (7-20); CALCIUM 9.4 mg/dL (8.4-10.2); CARBON DIOXIDE 32 mmol/L (22-30); CHLORIDE 102 mmol/L (98-107); GLUCOSE 100 mg/dL (75-110); POTASSIUM 4.2 mmol/L (3.6-5.0); SODIUM 142.7 mmol/L (137-145)
[2018-02-20 15:31] LABS: ACETAMINOPHEN < 10 ug/mL (10-30); ALCOHOL < 10 mg/dL (NONE DETECTED); SALICYLATE < 1.0 mg/dL (2.0-20.0)
[2018-02-20 15:40] LABS: APPEARANCE,URINE CLEAR; BILIRUBIN,URINE NEGATIVE (NEGATIVE); COLOR,URINE COLORLESS; GLUCOSE, URINE NEGATIVE (NEGATIVE); KETONES,URINE NEGATIVE (NEGATIVE); LEUKOCYTE ESTERASE,URINE NEGATIVE (NEGATIVE); NITRITE,URINE NEGATIVE (NEGATIVE); PROTEIN,URINE NEGATIVE (NEGATIVE); URINE SPECIFIC GRAVITY 1.002; UROBILINOGEN,URINE NEGATIVE mg/dL (<2.0)
[2018-02-20 16:01] LABS: URINE AMPHETAMINES SCREEN NEGATIVE; URINE BARBITURATES SCREEN NEGATIVE; URINE BENZODIAZEPINES SCREEN NEGATIVE; URINE COCAINE SCREEN NEGATIVE; URINE MARIJUANA (THC) SCREEN NEGATIVE; URINE METHADONE SCREEN NEGATIVE; URINE PHENCYCLIDINE SCREEN NEGATIVE
[2018-02-20 16:07] VITALS: BP 146/87
--- NOTE | 2018-02-20 16:49 | ER Document Report ---
ED Psych Disorder / Suicide <MIRYAM JAVIER - Last Filed: 02/20/18 18:51> - General TRAVEL OUTSIDE OF THE [place] IN LAST 30 DAYS: No <MAO WILL - Last Filed: 02/20/18 18:58> - General Chief Complaint: Psych Problem Stated Complaint: PSYCH EVAL Time Seen by Provider: 02/20/18 15:09 Notes: Patient has been expressing suicidal thoughts, although, at this time, he is not expressing suicidal feelings. Patient has a history of depression. Patient says that he described putting a bag over his head yesterday with intent to kill himself, although he does not feel that way today. He was also seen here earlier this week and feeling suicidal. He was discharged on Saturday with a prescription for Zyprexa, but the patient could not afford the prescription. It cost about $50. Patient has an IVC sworn out on him saying that he has been discussing possible suicide. 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 He has a son here who is in the . Here, patient has been staying with his son and his , but now has moved out from them and he lives alone. Patient denies any current medications. Says he has been out of blood pressure medicines. Says he had a stroke couple of months ago and was left with some mild left-sided weakness. Does not take aspirin daily. Denies any other significant past medical history. (MAO WILL) - Related Data Allergies/Adverse Reactions: No Known Allergies Allergy (Verified 02/20/18 14:33) Past Medical History - Social History Smoking Status: Never Smoker Chew tobacco use (# tins/day): No Frequency of alcohol use: None Drug Abuse: None Family History: Reviewed & Not Pertinent Patient has suicidal ideation: Yes Patient has homicidal ideation: No - Past Medical History Cardiac Medical History: Reports: Hx Hypercholesterolemia, Hx Hypertension Psychiatric Medical History: Reports: Hx Depression <MAO WILL - Last Filed: 02/20/18 18:58> Review of Systems <MAO WILL - Last Filed: 02/20/18 18:58> - Review of Systems Notes: REVIEW OF SYSTEMS: CONSTITUTIONAL : Denies fever. EENT: Denies eye, ear, nose or mouth or throat pain or other symptoms. CARDIOVASCULAR: Denies chest pain. RESPIRATORY: Denies cough, chest congestion, or shortness of breath. GASTROINTESTINAL: Denies abdominal pain or nausea, vomiting, or diarrhea. GENITOURINARY: Denies difficulty or painful urinating, urinary frequency, blood in urine. MUSCULOSKELETAL: Denies back or neck pain. Denies joint pain or swelling. SKIN: Denies rash or skin lesions. NEUROLOGICAL: Denies LOC or altered mental status. Denies headache. Denies sensory loss or motor deficits. ALL OTHER SYSTEMS REVIEWED AND NEGATIVE. (MAO WILL) Physical Exam - Vital signs Interpretation: Normal <MAO WILL - Last Filed: 02/20/18 18:58> - Vital signs Vitals: Temp Pulse Resp BP Pulse Ox 98.9 F 67 18 146/87 H 97 02/20/18 14:37 02/20/18 14:37 02/20/18 14:37 02/20/18 14:37 02/20/18 14:37 Notes: PHYSICAL EXAMINATION: GENERAL: Well-appearing, in no acute distress. Calm and deliberate conv ersation. Does not express suicidal thoughts at this time to me. HEAD: Atraumatic, normocephalic. EYES: Pupils equal round and reactive to light, extraocular movements intact. ENT: oropharynx clear without exudates. Moist mucous membranes. NECK: Normal range of motion, supple. LUNGS: Breath sounds clear and equal bilaterally. HEART: Regular rate and rhythm without murmurs. ABDOMEN: Soft, nontender. No guarding or rebound. No masses. BACK: No tenderness throughout entire back. EXTREMITIES: Normal range of motion without pain. NEUROLOGICAL: Normal speech, normal gait. Normal sensory, motor, and reflex exams. Awake, alert, and oriented x3. Cranial nerves normal. PSYCH: Normal mood, normal affect. SKIN: Warm, dry, no rashes. Numerous senile skin lesions of the scalp and f orehead. (MAO WILL) Course - Laboratory Result Diagrams: 02/20/18 15:00 02/20/18 15:00 <MIRYAM JAVIER - Last Filed: 02/20/18 18:51> - Laboratory Result Diagrams: 02/20/18 15:00 02/20/18 15:00 <MAO WILL - Last Filed: 02/20/18 18:58> - Vital Signs Vital signs: Temp Pulse Resp BP Pulse Ox 98.9 F 67 18 146/87 H 97 02/20/18 14:37 02/20/18 14:37 02/20/18 14:37 02/20/18 14:37 02/20/18 14:37 - Laboratory Laboratory results interpreted by me: 02/20/18 02/20/18 15:00 15:00 RDW 14.2 H Carbon Dioxide 32 H AST 13 L ALT 11 L Salicylates < 1.0 L Acetaminophen < 10 L Discharge <MIRYAM JAVIER - Last Filed: 02/20/18 18:51> <MAO WILL - Last Filed: 02/20/18 18:58> - Discharge Clinical Impression: Depression, Major depression, chronic Condition: Stable Disposition: HOME, SELF-CARE Additional Instructions: You were evaluated and assessed at [facility] ED by the medical and behavioral health teams for depression and alleged suicidal ideation, and have been determined to be appropriate for discharge. You have received the following services while at the ED: initial medical screening, labs, EKG, meals, direct observation, clinical evaluation, physician assessment, 1:1 counseling, and outpatient resources. Review of your chart reveals you were discharged from the ED on 02.18.2018 with an aftercare plan in place with your son,meliza shipley and resources for each of the problem areas you identified as contributing to your depression. You verbalized to both the physician and the behavioral health clinician at time of discharge understanding of the plan, agreement with plan, and denied suicidal ideation, intent or plan. Additionally, at discharge, a warm handoff to [facility] took place and you denied suicidal ideation to the M[facility] worker at that time. Today, you reportedly disregarded your health worker and advised your therapist of suicidal ideation, and did not allow your health worker to assist in obtaining your medications from the pharmacy. You have demonstrated ongoing non-compliance with the assistance you have been offered from the ED on several occasions. [facility] remains involved in your care and available to you for ongoing outpatient treatment and services. You received medications and are currently at the pharmacy, and all resources remain the same which you acknowledged you still have. You are encouraged to follow up with your outpatient behavioral health provider, [facility], be compliant with prescribed medications, and follow through with prescribed tasks you have been assigned. DEPRESSION: Your evaluation reveals that you have depression. While symptoms may be vague, they often include disturbance of sleep, fatigue, loss of appetite, and general loss of interest in life. While depression may be a side effect of drugs, or a reaction to a major change in your life, many cases have no known cause. If depression is acute, and related to a major loss in your life, you can expect it to clear completely with time. If you have been depressed a long time, are prone to repeated bouts of depression or low mood, or have been thinking of suicide, get help. Depression can be treated with anti-depressant medication and counseling. Long-term depression will often take a few weeks to clear, even with appropriate medication. Follow-up care is important. FOLLOW-UP CARE: If you have been referred to a physician for follow-up care, call the physicians office for an appointment as you were instructed or within the next two days.~ If you experience worsening or a significant change in your symptoms, notify mobile crisis immediately or return to the Emergency Department at any time for re-evaluation. Referrals: [facility] [Provider Group] - Follow up as needed [facility] Crisis [facility] [Provider Group] - Follow up as needed [facility] [Provider Group] - Follow up as needed
--- NOTE | 2018-02-21 08:20 | EKG REPORT ---
SEVERITY:- NORMAL ECG - SINUS RHYTHM : Confirmed by: Cecelia Del Angel MD 21-Feb-2018 08:19:46
== END 2018-02-20 19:04 | disposition home or self-care (01) ==
LOC: ER 14:27
DX: F32.9 Major depressive disorder, single episode, unspecified (principal); F29 Unspecified psychosis not due to a substance or known physiological condition; E78.00 Pure hypercholesterolemia, unspecified; I10 Essential (primary) hypertension
CPT/HCPCS: 36415; 80053; 80307; 81001; 85025; 93005; 93010; 99284